=== PATIENT | male | born 2000 ===

== ENCOUNTER 2024-12-18 19:58 | Emergency (ER) | payer SELFPAY ==
[~2024-12-18] VITALS: Ht 182.9 cm; Wt 77.3 kg
[2024-12-18 20:15] VITALS: BP 144/55; PULSE 134; TEMP 98.2; O2SAT 97
[2024-12-18 20:19] VITALS: RESP 15
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
== END 2024-12-18 21:53 ==
LOC: ER 19:59
DX: S61.214A Laceration without foreign body of right ring finger without damage to nail, initial encounter (principal); S80.211A Abrasion, right knee, initial encounter; S00.81XA Abrasion of other part of head, initial encounter; F10.129 Alcohol abuse with intoxication, unspecified; Y90.9 Presence of alcohol in blood, level not specified; V98.8XXA Other specified transport accidents, initial encounter; Y93.89 Activity, other specified; Y92.89 Other specified places as the place of occurrence of the external cause; Y99.8 Other external cause status
CPT/HCPCS: 99283; A6258